=== PATIENT | female | born 1955 | race Caucasian/White ===

== ENCOUNTER 2019-10-11 20:00 | Emergency (ER) | payer OTHER, SELFPAY ==
--- NOTE | ~2019-10-11 | XR_ITS ---
XR hip RT 2V w AP pelvis 10/11/2019 21:00 Indication: Right hip pain after fall Procedure: 4 views right hip including AP pelvis Comparison: 05/22/2014 Findings: There is a right bipolar hemiarthroplasty. There is a comminuted acetabular fracture with a cetabula protrusio. There is a fracture involving the greater trochanter which appears acute. Mild os teoarthritis of the left hip. The right lower extremity is internally rotated. Impression: 1: Comminuted right acetabular fracture with medial displacement and acetabula protrusio. 2: Acute displaced fracture of the greater trochanter. Reviewed, dictated and finalized at location A. SHOW HOST Impression: 1: Comminuted right acetabular fracture with medial displacement and acetabula protrusio. 2: Acute displaced fracture of the greater trochanter.
[2019-10-11 20:01] VITALS: BP 120/60; PULSE 77; RESP 16; TEMP 36.4; O2SAT 94
--- NOTE | 2019-10-11 20:09 | ED.FALL ---
HPI - Fall General Chief Complaint: Fall Stated Complaint: FALL,HIP PAIN Time Seen by Provider: 10/11/19 20:05 Source: patient and RN notes reviewed Mode of arrival: EMS Limitations: no limitations History of Present Illness HPI Narrative: A 64 y/o female, with a hx of multiple CVA's and chronic rt sided weakness, presents to the ED via EMS after having a ground level fall earlier tonight. She states that her rt knee gave out on her, causing her to fall to the floor. She reports severe rt hip pain and a GEORGE. She notes that she is typically able to walk with a cane and walker. She denies any HI, LOC, new focal weakness, fevers, chills, CP, SOB, N/V/D, or ABD pain. complaint: fall Onset (ago): minute(s) Fall from: standing Place fall occurred: home Loss of consciousness: none Symptoms prior to fall: none Context: tripped/slipped (rt knee gave out) Location of injury: other (rt hip) Associated symptoms (after fall): headache and weakness (chronic rt sided) Related Data Allergies Allergy/AdvReac Type Severity Reaction Status Date / Time codeine Allergy Severe Rash Verified 06/12/16 19:46 Penicillins Allergy Mild Hives / Verified 06/12/16 19:46 Red Face Review of Systems Review of Systems: All systems reviewed & are unremarkable except as noted in HPI and below Constitutional: Constitutional: Denies chills and Denies fever(s) Cardiovascular: Cardiovascular: Denies chest pain Respiratory: Respiratory: Denies dyspnea Gastrointestinal: Gastrointestinal: Denies abdominal pain, Denies diarrhea, Denies nausea and Denies vomiting Musculoskeletal: Musculoskeletal: Reports other (severe rt hip pain) Neurologic: Reports headache(s), Reports focal weakness (chronic rt sided. Denies: any new.) and Denies other (HI or LOC) [facility] Past Medical History Medical History (Updated 10/11/19 @ 22:45 by Kristi Kelly MD) A-fib Cataracts, bilateral CVA (cerebral vascular accident) x3 causing chronic rt sided weakness H/O: HTN (hypertension) HLD (hyperlipidemia) Hx of seizure disorder Intracranial hemorrhage Renal cancer lt Spinal fracture Surgical History Surgical History (Updated 10/11/19 @ 21:33 by Josh Eaton) H/O cataract removal with insertion of prosthetic lens History of left knee replacement History of nephrectomy lt History of right hip replacement History of spinal surgery Social History Social History (Updated 10/11/19 @ 21:33 by Josh Eaton) Smoking status: Former smoker Comments PCP: Dr. Silveira. Exam Const: General: cooperative, no acute distress and alert Nutritional Appearance: well nourished Orientation/consciousness: oriented x3 Limitations: no limitations HENMT: Mouth: Yes lip normal and Yes moist mucous membranes Resp: Effort & Inspection: normal respiratory effort Auscultation: clear to auscultation bilaterally Cardio: Rate: regular rate Rhythm: regular rhythm Heart sounds: no murmurs Peripheral pulses: pulses 2+ throughout GI: GI Palp: Yes soft and No tender Auscultation: normal bowel sounds Skin: General skin exam: normal color Neuro: General: oriented x3 Cognition (Neuro): normal cognition Speech: normal speech Extrem: General: no clubbing, cyanosis or edema Right lower extremity: hip/thigh (RLE shortened and externally rotated) Details: tenderness Location: of the hip (rt) Psych: Mental Status: mental status grossly normal Affect: normal affect Attitude: cooperative Course Course Emergency Course: Patient with periprosthetic fractures of the right greater trochanter and right acetabulum secondary to her fall. Patient reports she had her hip replacement done at [facility] as she sustained a hip fracture when she had her intracranial hemorrhage. Given complex nature of patient's fractures, advised patient would need transfer to tertiary care facility. Patient agreeable with transfer to [facility] where she initially had her surgery. Pain improved w
[2019-10-11] MEDS: MORPHINE SULFATE 2 MG/ML INJ IV PUSH (21:01)
[2019-10-11 21:28] VITALS: TEMP 36.4
[2019-10-11 22:30] VITALS: BP 134/58; PULSE 67; RESP 21; O2SAT 93
[2019-10-11] MEDS: MORPHINE SULFATE 4 MG/ML INJ IV PUSH (23:02)
[2019-10-11 23:07] VITALS: BP 136/71; PULSE 69; RESP 23; O2SAT 97
== END 2019-10-11 23:02 | disposition short-term general hospital (02) ==
PROVIDERS: Emergency Provider Emergency Medicine
DX: S32.491A Other specified fracture of right acetabulum, initial encounter for closed fracture (principal); M97.01XA Periprosthetic fracture around internal prosthetic right hip joint, initial encounter; I69.351 Hemiplegia and hemiparesis following cerebral infarction affecting right dominant side; I48.91 Unspecified atrial fibrillation; I10 Essential (primary) hypertension; E78.5 Hyperlipidemia, unspecified; Z96.652 Presence of left artificial knee joint; Z96.641 Presence of right artificial hip joint; Z87.891 Personal history of nicotine dependence; W18.39XA Other fall on same level, initial encounter
CPT/HCPCS: 73502; 73521; 96374; 96375; 96376; 99285; J0131; J2270

== ENCOUNTER 2019-12-29 08:53 | Emergency (ER) | payer OTHER, SELFPAY ==
--- NOTE | ~2019-12-29 | CT_ITS ---
EXAMINATION: CT knee RT wo con INDICATION: Right knee pain, unable to extend leg TECHNIQUE: Computed tomographic images of the right knee were obtained without intravenous contrast. The dose-length product (DLP) was 587 mGy-cm. Automated exposure control and iterative reconstruction technique were employed. COMPARISON: None available FINDINGS: The bones are osteopenic which limits the sensitivity for fracture however none is seen. Th ere is tricompartmental osteoarthritis. No joint effusion is identified. There is an old healed fract ure right proximal tibial diaphysis. IMPRESSION: 1. No fracture identified, sensitivity limited by osteopenia. If there is high clinical concern for o ccult fracture, MRI could be considered. Reviewed, dictated and finalized at location A. IMPRESSION: 1. No fracture identified, sensitivity limited by osteopenia. If there is high clinical concern for occult fracture, MRI could be considered.
--- NOTE | ~2019-12-29 | XR_ITS ---
EXAMINATION: XR hip RT 2V w AP pelvis INDICATION: Right hip pain TECHNIQUE: Three views of the right hip are obtained. COMPARISON: 10/11/2019 FINDINGS: There are changes of right hip arthroplasty. Again noted is superior and medial displacemen t of the acetabular component of the arthroplasty, consistent with prior fracture. There is mild scle rosis surrounding the right acetabulum, consistent with partial healing. Also noted is sclerosis surr ounding the previously described fracture of the greater trochanter. No definite acute fracture is id entified. IMPRESSION: 1. Healing fractures of the right acetabulum and right greater trochanter without evidence of acute o sseous abnormality. Reviewed, dictated and finalized at location A. IMPRESSION: 1. Healing fractures of the right acetabulum and right greater trochanter witho ut evidence of acute osseous abnormality.
--- NOTE | ~2019-12-29 | CT_ITS ---
EXAMINATION: CT hip RT wo con INDICATION: Right hip pain after fall TECHNIQUE: Computed tomographic images of the right hip were obtained without intravenous contrast. T he dose-length product (DLP) was 508 mGy-cm. Automated exposure control and iterative reconstruction technique were employed. COMPARISON: Right hip radiographs dated 10/11/2019 FINDINGS: There are changes of right hip hemiarthroplasty. Again seen is a right acetabular fracture with protrusio acetabuli, not significantly changed in configuration since the comparison examination . Some calcified callus has developed at the fracture sites. There are also healing fractures of the right inferior and superior pubic rami. A healing fracture of the greater trochanter is noted. The or thopedic hardware appears to be intact. Evaluation for acute fracture is limited by streak artifact f rom the orthopedic hardware. There is a questionable oblique lucency in the anterior cortex of the pr oximal femoral diaphysis, best appreciated on coronal reconstructed images 80-82. IMPRESSION: 1. Possible nondisplaced fracture of the anterior cortex of the proximal femoral shaft, evaluation li mited by streak artifact. 2. Healing right acetabular and pelvic fractures as detailed above. Reviewed, dictated and finalized at location A. IMPRESSION: 1. Possible nondisplaced fracture of the anterior cortex of the proximal femora l shaft, evaluation limited by streak artifact. 2. Healing right acetabular and pelvic fractures as detailed above.
--- NOTE | ~2019-12-29 | XR_ITS ---
EXAMINATION: XR knee RT min 4V DATE: 12/29/2019 09:30 INDICATION: Right knee pain after fall TECHNIQUE: Four views of the right knee were obtained. COMPARISON: 05/24/2014 FINDINGS: The bones are osteopenic which limits the sensitivity for fracture however none is seen. Th ere is a healed oblique fracture of the right proximal tibia. There is mild tricompartmental osteoart hritis characterized by tiny marginal osteophytes. No joint effusion/synovitis. Soft tissues are unr emarkable. IMPRESSION: 1. Osteopenia without definite acute osseous abnormality. 2. Healed fracture of the proximal tibia. Reviewed, dictated and finalized at location A.
--- NOTE | 2019-12-29 08:50 | ED.FALL ---
HPI - Fall General Chief Complaint: Fall Stated Complaint: fall Time Seen by Provider: 12/29/19 08:51 Source: patient Mode of arrival: EMS Limitations: no limitations History of Present Illness HPI Narrative: The pt is a 64 y/o female who presents to the ED, via EMS, c/o a fall which occurred one day ago around 2129. The pt presents from her home. Pt states that she fractured her right hip 3 months ago. She presented to this facility and then was transferred to [place]. She states that her right hip was put in traction at [place] and allowed to heal on its own. She states that her orthopedist, Dr. Green, discharged her one day ago. She states that she has physical therapy that helps her walk, but states that she has not tried to walk on her own without approval from her orthopedist. Pt states that she was transferring to her bed yesterday from her wheelchair when her legs got tangled up, causing her to fall onto her bed. She states that she landed on her chest and right side, with her legs dangling off of the bed. Pt states that when she went to bed, her right leg was unable to straighten like she normally is able to, but was not experiencing any pain when she went to bed. Today, pt states that she began to experience pain between the right knee and right thigh when her daughter lifted her up. She notes that trying to move her RLE induces the pain. Pt denies head injury. Pt notes that she has a PMHx of CVA with residual right-sided weakness. complaint: fall Onset (ago): day(s) (1) Fall from: wheelchair Place fall occurred: home Context: other (Legs got tangled up ) Associated symptoms (after fall): other (Pain between the right knee and right thigh when she moves her RLE) Related Data Allergies Allergy/AdvReac Type Severity Reaction Status Date / Time codeine Allergy Severe Rash Verified 06/12/16 19:46 Penicillins Allergy Mild Hives / Verified 06/12/16 19:46 Red Face Review of Systems Review of Systems: All systems reviewed & are unremarkable except as noted in HPI and below Musculoskeletal: Musculoskeletal: Reports other (Pain between the right knee and right thigh when she moves her RLE) Neurologic: Denies other (Head injury) [facility] Past Medical History Medical History (Updated 12/29/19 @ 14:35 by Briseyda Beckham MD) A-fib Cataracts, bilateral CVA (cerebral vascular accident) x3 causing chronic rt sided weakness H/O: HTN (hypertension) Hip fracture, right HLD (hyperlipidemia) Hx of seizure disorder Intracranial hemorrhage Renal cancer lt Spinal fracture Surgical History Surgical History (Updated 12/29/19 @ 14:35 by Briseyda Beckham MD) H/O cataract removal with insertion of prosthetic lens History of left knee replacement History of nephrectomy lt History of right hip replacement History of spinal surgery Social History Social History (Updated 12/29/19 @ 12:12 by Maximino Ham) Smoking status: Former smoker Living arrangements: with family Comments Orthopedist: Dr. Green Exam Const: General: no acute distress and alert Orientation/consciousness: patient oriented x3 HENMT: Head: normocephalic and atraumatic Face and sinus: normal facial exam and sinuses nontender Mouth: Yes lip normal Eyes: Conjunctivae: conjunctivae normal Pupils: Equal, round and reactive pupils present Neck: Neck: normal visual inspection Chest: Chest palpation & inspection: normal inspection of the chest Resp: Effort & Inspection: normal respiratory effort Auscultation: clear to auscultation bilaterally Cardio: Rate: regular rate Rhythm: regular rhythm Skin: Rashes: no rashes Neuro: General: patient oriented x3 Other: right arm contraction for prior stroke, 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 Unable to extend leg with producing pain. abrasion to right knee Course Course Emergency Course: Patient pre
[2019-12-29 08:51] VITALS: BP 133/101; PULSE 90; RESP 14; TEMP 37.1; O2SAT 98
--- NOTE | 2019-12-29 11:49 | PC.NURSE ---
attempted multiple times for iv access, no blood drawn
[2019-12-29 11:57] VITALS: BP 131/65; PULSE 90; RESP 18; O2SAT 94
[2019-12-29 12:52] VITALS: BP 115/59; PULSE 88; RESP 16; O2SAT 98
[2019-12-29 14:25] VITALS: BP 124/68; PULSE 92; RESP 16; O2SAT 98
== END 2019-12-29 15:20 | disposition short-term general hospital (02) ==
PROVIDERS: Emergency Provider General Practice
DX: S72.001A Fracture of unspecified part of neck of right femur, initial encounter for closed fracture (principal); Z96.641 Presence of right artificial hip joint; I48.91 Unspecified atrial fibrillation; I69.951 Hemiplegia and hemiparesis following unspecified cerebrovascular disease affecting right dominant side; I10 Essential (primary) hypertension; E78.5 Hyperlipidemia, unspecified; Z85.528 Personal history of other malignant neoplasm of kidney; Z90.5 Acquired absence of kidney; Z98.42 Cataract extraction status, left eye; Z98.41 Cataract extraction status, right eye; Z96.1 Presence of intraocular lens; Z96.652 Presence of left artificial knee joint; Z87.891 Personal history of nicotine dependence; M85.88 Other specified disorders of bone density and structure, other site; W05.0XXA Fall from non-moving wheelchair, initial encounter
CPT/HCPCS: 73502; 73521; 73564; 73700; 96374; 99285; J1170; J2405; J3360

== ENCOUNTER 2020-03-03 09:43 | Outpatient (CLI) | payer OTHER, SELFPAY ==
[2020-03-03 10:13] LABS: Basophils Absolute Auto 0.1 K/mm3 (0.0-0.1); Basophils Percent Auto 1.2 % (0.2-1.2); Eosinophils Absolute Auto 0.6 K/mm3 (0-0.3); Eosinophils Percent Auto 7.7 % (0-4.4); Hematocrit 39.5 % (37.0-47.0); Hemoglobin 12.2 g/dL (12.0-15.0); Immature Granulocyte Absolute 0.03 K/mm3 (0.00-0.031); Immature Granulocyte Percent A 0.4 % (0-0.5); Lymphocytes Absolute Auto 0.68 K/mm3 (0.9-3.2); Lymphocytes Percent Auto 8.3 % (18.3-44.2); Mean Corpuscular HGB Conc 30.9 g/dl (32-36); Mean Corpuscular Hemoglobin 27.4 pg (26-34); Mean Corpuscular Volume 88.6 fl (80-100); Mean Platelet Volume 9.2 fl (7.4-10.4); Monocytes Percent Auto 12.4 % (2.6-8.5); Neutrophils Absolute Auto 5.7 K/mm3 (1.3-6.7); Platelet Count Result 334 k/mm3 (150-375); Red Blood Count 4.46 M/mm3 (4.2-5.4); Red Cell Distribution Width 15.3 % (11.5-14.5); White Blood Count 8.2 K/mm3 (4.5-10.0)
== END 2020-03-03 09:44 | disposition home or self-care (01) ==
DX: M06.09 Rheumatoid arthritis without rheumatoid factor, multiple sites (principal); Z79.899 Other long term (current) drug therapy
CPT/HCPCS: 36415; 85025

== ENCOUNTER 2020-03-04 09:39 | Outpatient (CLI) | payer OTHER, SELFPAY ==
[2020-03-04 10:27] LABS: Alanine Aminotransferase 15 U/L (4-35); Albumin Level 2.8 g/dL (3.5-5.1); Alkaline Phosphatase 135 U/L (38-126); Aspartate Amino Transferase 26 U/L (14-36); Bilirubin,Total 0.4 mg/dL (0.2-1.3); Blood Urea Nitrogen 16 mg/dL (7-17); Carbon Dioxide 20 mmol/L (22-30); Chloride 106 mmol/L (98-107); Estimated Glomerular Filt Rate 50; Glucose 91 mg/dL (65-105); Potassium 4.7 mmol/L (3.4-5.0); Sodium 135 mmol/L (137-145)
== END 2020-03-04 09:40 | disposition home or self-care (01) ==
DX: M06.09 Rheumatoid arthritis without rheumatoid factor, multiple sites (principal); Z79.899 Other long term (current) drug therapy
CPT/HCPCS: 36415; 80053

== ENCOUNTER 2020-05-14 08:50 | Outpatient (CLI) | payer OTHER, SELFPAY ==
[2020-05-14 09:23] LABS: Basophils Absolute Auto 0.1 K/mm3 (0.0-0.1); Basophils Percent Auto 1.1 % (0.2-1.2); Eosinophils Absolute Auto 0.3 K/mm3 (0-0.3); Hematocrit 36.4 % (37.0-47.0); Hemoglobin 11.3 g/dL (12.0-15.0); Immature Granulocyte Absolute 0.01 K/mm3 (0.00-0.031); Immature Granulocyte Percent A 0.2 % (0-0.5); Lymphocytes Percent Auto 18.6 % (18.3-44.2); Mean Corpuscular Hemoglobin 27.8 pg (26-34); Mean Corpuscular Volume 89.4 fl (80-100); Mean Platelet Volume 9.4 fl (7.4-10.4); Monocytes Absolute Auto 0.2 K/mm3 (0.1-0.6); Monocytes Percent Auto 2.3 % (2.6-8.5); Neutrophils Absolute Auto 4.8 K/mm3 (1.3-6.7); Neutrophils Percent Auto 73.8 % (45.5-73.1); Platelet Count Result 359 k/mm3 (150-375); Red Blood Count 4.07 M/mm3 (4.2-5.4); Red Cell Distribution Width 17.2 % (11.5-14.5); White Blood Count 6.5 K/mm3 (4.5-10.0)
[2020-05-14 09:46] LABS: Alanine Aminotransferase 15 U/L (4-35); Albumin Level 3.6 g/dL (3.5-5.1); Alkaline Phosphatase 105 U/L (38-126); Anion Gap 11.6 mmol/L (7-16); Aspartate Amino Transferase 24 U/L (14-36); Bilirubin,Total 0.5 mg/dL (0.2-1.3); Blood Urea Nitrogen 25 mg/dL (7-17); Calcium 8.7 mg/dL (8.4-10.2); Carbon Dioxide 25 mmol/L (22-30); Chloride 110 mmol/L (98-107); Estimated Glomerular Filt Rate 35; Glucose 84 mg/dL (65-105); Potassium 4.6 mmol/L (3.4-5.0); Sodium 142 mmol/L (137-145)
== END 2020-05-14 08:51 | disposition home or self-care (01) ==
LOC: ANHLAB 08:52
PROVIDERS: Visit Provider Internal Medicine
DX: M06.09 Rheumatoid arthritis without rheumatoid factor, multiple sites (principal); Z79.899 Other long term (current) drug therapy
CPT/HCPCS: 36415; 80053; 85025

== ENCOUNTER 2020-09-18 11:26 | Outpatient (CLI) | payer OTHER, SELFPAY ==
[2020-09-18 12:21] LABS: Basophils Absolute Auto 0.1 K/mm3 (0.0-0.1); Basophils Percent Auto 1.1 % (0.2-1.2); Eosinophils Absolute Auto 0.4 K/mm3 (0-0.3); Eosinophils Percent Auto 4.8 % (0-4.4); Hematocrit 37.2 % (37.0-47.0); Hemoglobin 11.8 g/dL (12.0-15.0); Immature Granulocyte Absolute 0.03 K/mm3 (0.00-0.031); Immature Granulocyte Percent A 0.4 % (0-0.5); Lymphocytes Absolute Auto 0.99 K/mm3 (0.9-3.2); Lymphocytes Percent Auto 11.8 % (18.3-44.2); Mean Corpuscular HGB Conc 31.7 g/dl (32-36); Mean Corpuscular Hemoglobin 28.4 pg (26-34); Mean Corpuscular Volume 89.6 fl (80-100); Mean Platelet Volume 8.7 fl (7.4-10.4); Monocytes Absolute Auto 0.4 K/mm3 (0.1-0.6); Neutrophils Absolute Auto 6.4 K/mm3 (1.3-6.7); Neutrophils Percent Auto 76.9 % (45.5-73.1); Platelet Count Result 343 k/mm3 (150-375); Red Blood Count 4.15 M/mm3 (4.2-5.4); Red Cell Distribution Width 17.5 % (11.5-14.5); White Blood Count 8.4 K/mm3 (4.5-10.0)
[2020-09-18 12:35] LABS: Alanine Aminotransferase 16 U/L (4-35); Albumin Level 3.4 g/dL (3.5-5.1); Alkaline Phosphatase 123 U/L (38-126); Anion Gap 8 mmol/L (8-16); Aspartate Amino Transferase 26 U/L (14-36); Bilirubin,Total 0.5 mg/dL (0.2-1.3); Blood Urea Nitrogen 25 mg/dL (7-17); Calcium 8.8 mg/dL (8.4-10.2); Carbon Dioxide 27 mmol/L (22-30); Chloride 107 mmol/L (98-107); Estimated Glomerular Filt Rate 28; Glucose 102 mg/dL (65-105); Potassium 4.3 mmol/L (3.4-5.0); Sodium 142 mmol/L (137-145)
[2020-09-18 12:52] LABS: Digoxin 1.7 ng/mL (0.8-2.0)
[2020-09-18 12:56] LABS: Erythrocyte Sedimentation Rate 51 mm/hr (0-20)
== END 2020-09-18 11:27 | disposition home or self-care (01) ==
PROVIDERS: Visit Provider Internal Medicine
DX: M06.09 Rheumatoid arthritis without rheumatoid factor, multiple sites (principal); Z51.81 Encounter for therapeutic drug level monitoring; Z79.899 Other long term (current) drug therapy
CPT/HCPCS: 36415; 80053; 80162; 85025; 85652; 86140

== ENCOUNTER 2020-09-23 14:18 | Outpatient (CLI) | payer OTHER, SELFPAY ==
--- NOTE | ~2020-09-23 | US_ITS ---
EXAMINATION: US venous doppler [facility] DATE: 09/23/2020 14:56 INDICATION: Left lower limb pain. TECHNIQUE: Grayscale ultrasound images without and with compression and Doppler ultrasound images of the left lower extremity veins were obtained. COMPARISON: None. FINDINGS: The visualized portions of left common femoral vein, profunda (deep) femoral vein, femoral vein, popl iteal vein, peroneal veins, posterior tibial veins, and greater saphenous vein outflow are patent. IMPRESSION: 1. No deep venous thrombosis. Reviewed, dictated and finalized at location B. [employer]
== END 2020-09-23 14:19 | disposition home or self-care (01) ==
PROVIDERS: PCP Family Medicine; Visit Provider Family Medicine
DX: M79.662 Pain in left lower leg (principal)
CPT/HCPCS: 93971